=== PATIENT | female | born 1995 | race African-American/Black ===

== ENCOUNTER 2024-12-20 18:38 | Emergency (ER) | payer MEDICAID ==
[~2024-12-20] VITALS: Ht 170.2 cm; Wt 66.0 kg
[2024-12-20 18:46] VITALS: O2SAT 100
[2024-12-20 18:49] VITALS: BP 101/58; TEMP 36.8; O2SAT 100
[2024-12-20] MEDS: ALBUTEROL (0.5%) 2.5MG/0.5ML NEB HHN ONE (19:37)
[2024-12-20 19:38] VITALS: PULSE 70; RESP 18
[2024-12-20] MEDS ORDERED: ALBU18HF2 IH (21:33)
== END 2024-12-20 22:01 | disposition home or self-care (01) ==
LOC: ER 18:38
DX: Z77.098 Contact with and (suspected) exposure to other hazardous, chiefly nonmedicinal, chemicals (principal); J45.909 Unspecified asthma, uncomplicated; Z59.00 Homelessness unspecified
CPT/HCPCS: 71045; 94640; 99283; Z7610; 94070